=== PATIENT | male | born 1980 | race Caucasian/White ===

== ENCOUNTER 2019-06-22 11:38 | Emergency (ER) | payer OTHER ==
--- OUTSIDE RECORDS SUMMARY | 2019-06-22 12:52 | XMS REPORT | Summary of Care ---
:1980 Author Organization [facility] Address [address] [facility] [place] [address] Care Team Providers Name Role Phone None, [place] Primary Care Provider Unavailable Reason for Visit Reason Comments Establish Care pt presents to establish care Encounter Details Date Type Department Care Team Description 05/20/2019 Office Visit [facility] Eric Pizano MD Anxiety and depression (Primary Dx); Practice [address] [place] [address] Attention deficit hyperactivity disorder (ADHD), combined type; [address] [place] [address] Bipolar affective disorder, current episode depressed, current episode severity unspecified (HCC); [place] [address] Genital warts; [phone] Lateral epicondylitis of right elbow; (Fax) Gastroesophageal reflux disease, esophagitis presence not specified; Dizzy spells Allergies No Known Allergiesdocumented as of this encounter (statuses as of 05/20/2019) Medications Medication Sig Dispensed Refills Start Date End Date Status OLANZapine (ZYPREXA) 5 Take 1 Tab by 30 Tab 1 05/20/2019 Active MG Oral Tab mouth EVERY BEDTIME. gabapentin (NEURONTIN) Take 1 Cap by 90 Cap 1 05/20/2019 Active 300 MG Oral Cap mouth THREE TIMES DAILY. documented as of this encounter (statuses as of 05/20/2019) Active Problems Problem Noted Date ADHD Anxiety and depression Bipolar affect, depressed Genital warts documented as of this encounter (statuses as of 05/20/2019) Social History Tobacco Use Types Packs/Day Years Used Date Current Every Day Smoker Cigarettes 1 Started: 1994 Smokeless Tobacco: Never Used Alcohol Use Drinks/Week oz/Week Comments Not Currently Sex Assigned at Date Recorded Not on file Job Start Date Occupation Industry Not on file Not on file Not on file Travel History Travel Start Travel End No recent travel history available. documented as of this encounter Last Filed Vital Signs Vital Sign Reading Time Taken Comments Blood Pressure 120/82 05/20/2019 9:12 AM EDT Pulse 92 05/20/2019 9:12 AM EDT Temperature - - Respiratory Rate - - Oxygen Saturation 98% 05/20/2019 9:12 AM EDT Inhaled Oxygen Concentration - - Weight 90.7 kg (200 lb) 05/20/2019 9:12 AM EDT Height 177.8 cm (5' 10") 05/20/2019 9:12 AM EDT Body Mass Index 28.7 05/20/2019 9:12 AM EDT documented in this encounter Progress Notes Eric Pizano MD - 05/20/2019 9:00 AM EDT PATIENT: Sean Dubois : 1980 DATE OF SERVICE: 05/20/2019 CHIEF COMPLAINT: Chief Complaint Patient presents with Establish Care pt presents to establish care Subjective HISTORY OF PRESENT ILLNESS: Sean Dubois is a 38-y.o. male. In for the first time . He has a new complaint of a mole n his scalp, not sure if change, it can get irritated Also thinks genitalwarts are back , had them burned 8 years ago Most issues are mental healthy related , he saw a [facility] before who Rx meds, 1 med he recalled was neurontin for anxiety. In [facility] he had meds changed around and he did not like them. Called his old pharmacy and they has zyprexa 5 and motrin 800 and adderrall xr 30 bid But no neurontin He said 6 600mgin a day Right handed with on and off right elbow pain, lifting weights made it worse, now lifting bothers it. Not do anything for it. Past Medical History: Diagnosis Date ADHD Anxiety and depression Bipolar affect, depressed (HCC) Genital warts Family History Problem Relation Age of Onset No Known Problems Mother No Known Problems Father No current outpatient medications on file. No current facility-administered medications for this visit. No Known Allergies Social History Socioeconomic History Marital status: Single Spouse name: Not on file Number of children: Not on file Years of education: Not on file Highest education level: Not on file Occupational History Not on file Social Needs Financial resource strain: Not on file Food insecurity: Worry: Not on file Inability: Not on file Transportation needs: Medical: Not on file Non-medical: Not on file Tobacco Use Smoking status: Current Every Day Smoker Packs/day: 1.00 Types: Cigarettes Start date: 1994 Smokeless tobacco: Never Used Substance and Sexual Activity Alcohol use: Not Currently Drug use: Not Currently Types: Cocaine, Marijuana Sexual activity: Not on file Lifestyle Physical activity: Days per week: Not on file Minutes per session: Not on file Stress: Not on file Relationships Social connections: Talks on phone: Not on file Gets together: Not on file Attends caodaism service: Not on file Active member of club or organization: Not on file Attends meetings of clubs or organizations: Not on file Relationship status: Not on file Intimate partner violence: Fear of current or ex partner: Not on file Emotionally abused: Not on file Physically abused: Not on file Forced sexual activity: Not on file Other Topics Concern Not on file 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 Wants teeth removed Eyes: Glasses when young Respiratory: Negative for shortness of breath. Cardiovascular: Chest pain: with anxiety. Gastrointestinal: Positive for heartburn (few days a week ). Neurological: Dizziness: with stretching. Headaches: occasional. Psychiatric/Behavioral: Negative for suicidal ideas. Objective PHYSICAL EXAM: VITALS: BP 120/82 (BP Location: Left arm, Patient Position: Sitting) | Pulse 92 | Ht 5' 10" (1.778 m) | Wt 200 lb (90.7 kg) | SpO2 98% | BMI 28.70 kg/m Body mass index is 28.7 kg/m. Physical Exam Exam lot of tattoos * no apparent distress, eyes clear, ears normal, oral- moist, no suspicious lesions. Teeth poor Neck supple, without masses. Heart regular without murmur. Lungs clear. Abdomen soft non-tender no masses. Extremity no clubbing cyanosis or edema. Mild tender right elbow mild pain with pronate supinate Skin occiput benign lesion, penis 1 very small slight umbilicated lesion and 1 very large lesion on the shaft Dress and hygiene ok Good eye contact Thoughts and speech normal Affect Appropriate Mood slight anxious ASSESSMENT / IMPRESSION: ICD-9-CM ICD-10-CM 1. Anxiety and depression mental health his biggest issue. Did not ask a lot about ADHD but thoughthe had it based on self medicating. I wrote for the zyprexa and lower dose neurontin but can see psych going forward 300.00 F41.9 311 F32.9 2. Attention deficit hyperactivity disorder (ADHD), combined type 314.01 F90.2 3. Bipolar affective disorder, current episode depressed, current episode severity unspecified (HCC)296.50 F31.30 4. Genital warts froze both scalp and genital the smaller one 4 x with q tip others with a gun . He can go to derm or try aldarra as other ideas 078.11 A63.0 DESTRUCTION LESION BENIGN UP TO 14 LESIONS 5. Lateral epicondylitis of right elbow discussed injection and PT he will try band and motrin 726.32 M77.11 6. Gastroesophageal reflux disease, esophagitis presence not specified should be on H2 zulema to try 530.81 K21.9 7. Dizzy spells 780.4 R42 And HORNE no formal workup today Plan Procedure explain including risks and benefits. Risk include blistering and not working . Patient consent to the procedure. Using cryogun 10 seconds lesion on scalp and shaft of penis. 4 time with q tip on the small lesion Author: Eric Pizano MD 05/20/2019 09:24 documented in this encounter Plan of Treatment Name Type Priority Associated Diagnoses Order Schedule DESTRUCTION LESION Procedures Routine Genital warts Ordered: 05/20/2019 BENIGN UP TO 14 LESIONS Health Maintenance Due Date Last Done Comments HIV SCREENING 1995 INFLUENZA VACCINE (#1) 2019 DEPRESSION SCREENING 05/20/2020 05/20/2019 HPV IMMUNIZATION SERIES Aged Out No longer eligible based on patient's age to complete this topic MENINGOCOCCAL VACCINE IMM Aged Out No longer eligible based on patient's age to complete this topic PNEUMOCOCCAL 0-64 YRS Aged Out No longer eligible based on patient's age to complete this topic documented as of this encounter Results Not on filedocumented in this encounter Visit Diagnoses Diagnosis Anxiety and depression - Primary Dysthymic disorder Attention deficit hyperactivity disorder (ADHD), combined type Bipolar affective disorder, current episode depressed, current episode severity unspecified (HCC) Genital warts Condyloma acuminatum Lateral epicondylitis of right elbow Lateral epicondylitis of elbow Gastroesophageal reflux disease, esophagitis presence not specified Dizzy spells Dizziness and giddiness documented in this encounter Insurance Payer Benefit Plan / Subscriber ID Effective Dates Phone Address Type Group [place] xxxxxxxx 2019-Present Medicaid [place] documented as of this encounter
--- OUTSIDE RECORDS SUMMARY | 2019-06-22 12:52 | XMS REPORT | Summary of Care ---
:1980 Author Organization [facility] Address [address] [facility] [place] [address] Care Team Providers Name Role Phone None, [place] Primary Care Provider Unavailable Reason for Visit Reason Comments Follow Up pt presents for follow up Encounter Details Date Type Department Care Team Description 06/02/2019 Office Visit [facility] Eric Pizano MD Genital warts (Primary Dx); Practice [address] [place] [address] Attention deficit hyperactivity disorder (ADHD), combined type; [address] [place] [address] [place] [address] [phone] Allergies No Known Allergiesdocumented as of this encounter (statuses as of 06/02/2019) Medications Medication Sig Dispensed Refills Start Date End Date Status OLANZapine (ZYPREXA) 5 Take 1 Tab by 30 Tab 1 05/20/2019 Active MG Oral Tab mouth EVERY BEDTIME. gabapentin (NEURONTIN) Take 1 Cap by 90 Cap 1 05/20/2019 Active 300 MG Oral Cap mouth THREE TIMES DAILY. famotidine (PEPCID) 20 Take 1 Tab by 60 Tab 5 06/02/2019 Active MG Oral Tab mouth TWICE DAILY. documented as of this encounter (statuses as of 06/02/2019) Active Problems Problem Noted Date ADHD Anxiety and depression Bipolar affect, depressed Genital warts documented as of this encounter (statuses as of 06/02/2019) Social History Tobacco Use Types Packs/Day Years [...] Sign Reading Time Taken Comments Blood Pressure 130/82 06/02/2019 2:27 PM EDT Pulse 94 06/02/2019 2:27 PM EDT Temperature - - Respiratory Rate - - Oxygen Saturation 98% 06/02/2019 2:27 PM EDT Inhaled Oxygen Concentration - - Weight 90.4 kg (199 lb 6.4 oz) 06/02/2019 2:27 PM EDT Height 177.8 cm (5' 10") 06/02/2019 2:27 PM EDT Body Mass Index 28.61 06/02/2019 2:27 PM EDT documented in this encounter Progress Notes Eric Pizano MD - 06/02/2019 2:20 PM EDT PATIENT: Sean Dubois : 1980 DATE OF SERVICE: 06/02/2019 CHIEF COMPLAINT: Chief Complaint Patient presents with Follow Up pt presents for follow up Subjective HISTORY OF PRESENT ILLNESS: Sean Dubois is a 38-y.o. male. In primarily to treat his warts. He thinks the 3 lesions have shrunk. His sister thinks the one onscalp smaller He does not want to go to another doctor. At last visit I told him should go back to mental health to get meds I was going to give temporarily. He cant get into his old doctors practice as full Mat . He feels mood ok on neurontin and zyprexa I did not want to give the stimulant His elbow ok but not using it. HORNE not bother lately Dizzy only when stretches Past Medical History: Diagnosis Date ADHD Anxiety and depression Bipolar affect, depressed (HCC) Genital warts Family History Problem Relation Age of Onset No Known Problems Mother No Known Problems Father Current Outpatient Medications Medication Sig famotidine (PEPCID) 20 MG Oral Tab Take 1 Tab by mouth TWICE DAILY. gabapentin (NEURONTIN) 300 MG Oral Cap Take 1 Cap by mouth THREE TIMES DAILY. OLANZapine (ZYPREXA) 5 MG Oral Tab Take 1 Tab by mouth EVERY BEDTIME. No current facility-administered medications for this visit. 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 Physical Exam Vitals signs reviewed. Constitutional: Appearance: He is not ill-appearing. Cardiovascular: Rate and Rhythm: Normal rate and regular rhythm. Pulmonary: Effort: Pulmonary effort is normal. Breath sounds: Normal breath sounds. Skin: Comments: 8mm flatter flesh pink on vertex Still a large lesion at base of penis . Shaft small and sligh excoriated Psychiatric: Comments: Dress and hygiene good Good eye contact Thoughts and speech normal Affect Appropriate Mood stable ASSESSMENT / IMPRESSION: ICD-9-CM ICD-10-CM 1. Genital warts 078.11 A63.0 2. Attention deficit hyperactivity disorder (ADHD), combined type no stimulants [facility]01 F90.2 3. Anxiety and depression stable but up hill up with his criminal record 300.00 F41.9 311 F32.9 Plan Procedure Procedure explain including risks and benefits. Risk include pain infection and blistering Patient consent to the procedure. 10 sec on vertex, 10 sec x 2 on penis base. q tip x 4 on penis tip Author: Eric Pizano MD 06/02/2019 21:43 documented in this encounter Plan of Treatment Date Type Specialty Care Team Description 06/18/2019 Office Visit Family Practice Eric Pizano MD [address] [address] [phone] Health Maintenance Due Date Last Done Comments PNEUMOCOCCAL 0-64 YRS (1 of 1 - 1986 PPSV23) HIV SCREENING 1995 DEPRESSION SCREENING 05/20/2020 05/20/2019 INFLUENZA VACCINE (#1) 2020 Postponed from 04/20/2019 (Patient refused) HPV IMMUNIZATION SERIES Aged Out No longer eligible based on patient's age to complete this topic MENINGOCOCCAL VACCINE IMM Aged Out No longer eligible based on patient's age to complete this topic documented as of this encounter Goals Goal Patient Goal Associated Recent Patient-Stated? Author Type Problems Progress Depression Depression No enrique Pizano (PHQ-9) MD Eric total score < 5 Note: This is an individualized treatment (depression) goal for Sean Sherly: Displayed above is your goal for a depression screening (PHQ-9) score that would indicate good control of your depression. Keep a regular sleep schedule Lifestyle No Eric Pizano MD Note: This is an individualized lifestyle goal for Sean Dubois: Please maintain a regular sleep schedule. This may help with some symptoms of depression. Take all prescribed medications as directed Self-management No Eric Pizano MD Note: This is an individualized self-management goal for Sean Dubois: Please take all prescribed medications as directed. 1. Do not skip doses. If you cannot afford your medications, talk with your doctor. 2. Use a pill reminder system such as a pill box if needed. Your pharmacist can help you with this. 3. Contact your Pharmacy 5 days before your medication runs out. If you cannot take your medications for any reasons, talk with your doctor. 4. Please bring all of your medication bottles and inhalers (or a list of all your medications/inhalers) with you to every visit. Potential barriers to meeting all of your care plan goals will continue to be addressed on an ongoing basis. documented as of this encounter Results Not on filedocumented in this encounter Visit Diagnoses Diagnosis Genital warts - Primary Condyloma acuminatum Attention deficit hyperactivity disorder (ADHD), combined type Anxiety and depression Dysthymic disorder documented in this encounter Insurance Payer Benefit Plan / Subscriber ID Effective Dates Phone Address Type Group [facility] xxxxxxxxxxx 2019-Present [place] 2019-Present [place] documented as of this encounter
--- OUTSIDE RECORDS SUMMARY | 2019-06-22 12:52 | XMS REPORT | Summary of Care ---
:1980 Author Organization [facility] Address [address] [facility] [place] [address] Care Team Providers Name Role Phone None, [place] Primary Care Provider Unavailable Reason for Visit Reason Comments Follow Up pt presents for follow up Encounter Details Date Type Department Care Team Description 06/18/2019 Office Visit [facility] Eric Pizano MD Genital warts (Primary Practice [address] Dx) [address] [place] [address] [place] [address] [phone] Allergies No Known Allergiesdocumented as of this encounter (statuses as of 06/18/2019) Medications Medication Sig Dispensed Refills Start Date [...] as of this encounter (statuses as of 06/18/2019) Active Problems Problem Noted Date ADHD Anxiety and depression Bipolar affect, depressed Genital warts documented as of this encounter (statuses as of 06/18/2019) Social History Tobacco Use Types Packs/Day Years Used Date Never Assessed Sex Assigned at Date Recorded Not on file Job Start Date Occupation Industry Not on file Not on file Not on file Travel History Travel Start Travel End No recent travel history available. documented as of this encounter Last Filed Vital Signs Vital Sign Reading Time Taken Comments Blood Pressure 162/88 06/18/2019 4:11 PM EDT Pulse 93 06/18/2019 4:11 PM EDT Temperature - - Respiratory Rate - - Oxygen Saturation 96% 06/18/2019 4:11 PM EDT Inhaled Oxygen Concentration - - Weight 92.7 kg (204 lb 6.4 oz) 06/18/2019 4:11 PM EDT Height 177.8 cm (5' 10") 06/18/2019 4:11 PM EDT Body Mass Index 29.33 06/18/2019 4:11 PM EDT documented in this encounter Progress Notes Eric Pizano MD - 06/18/2019 4:00 PM EDTPATIENT: Sean Dubois : 1980 DATE OF SERVICE: 06/18/2019 SUBJECTIVE: been giving liquid nitrogen treatment to the large genital wart. He thinks it is getting better slowly . Sloughs off little at a time OBJECTIVE: BP 162/88 (BP Location: Right arm, Patient Position: Sitting) Pulse 93 Ht 5' 10" (1.778 m) Wt 204lb 6.4 oz (92.7 kg) SpO2 96% BMI 29.33 kg/m2 The wart is less inflamed and maybe little smaller on the penile base ASSESSMENT: Genital wart PLAN: Using liquid nitrogen gun his for 20 seconds gave a prolonged freeze follow up in 2 weeks Author: Eric Pizano MD 06/18/2019 20:47 documented in this encounter Plan of Treatment Date Type Specialty Care Team Description 07/03/2019 Office Visit Family Practice Eric Pizano MD [address] [place] [address] [phone] Name Type Priority Associated Diagnoses Order Schedule DESTRUCTION LESION Procedures Routine Genital warts Ordered: 06/18/2019 BENIGN UP TO 14 LESIONS Health Maintenance Due Date Last Done Comments PNEUMOCOCCAL 0-64 YRS (1 of - 1986 PPSV23) HIV SCREENING 1995 DEPRESSION [...] an individualized treatment (depression) goal for Sean Dubois: Displayed above is your goal for a [...] Diagnosis Genital warts - Primary Condyloma acuminatum documented in this encounter Insurance Payer Benefit Plan / Subscriber ID Effective Dates Phone Address Type Group [facility] xxxxxxxxxxx 2019-Present [place] 2019-Present [place] documented as of this encounter
[2019-06-22 12:57] VITALS: BP 173/108
--- NOTE | 2019-06-22 13:06 | UC ---
Back Pain HPI - HPI Summary HPI Summary: Patient is a 38yo male presenting with back pain since 06/19/19 after he fell 6 ft off a ladder and hit his mid back on a 6ft retainer wall while cleaning gutters. Patient states pain is sharp and throbbing and has not improved. Notes radiating pain into R ribs. Notes increased pain with coughing. Notes pain worse with going from standing to sitting position and vice versa. Also notes pain in worse in morning after becoming stiff all night it the pain causes nausea when standing up out of bed. Notes pain better when sitting or lying still. Increased pain also with ambulation. Denies numbness and tingling. Denies decreased strength. Denies incontinence or changes in urination or BMs. Denies abdominal pain and vomiting. Denies neck or lower back pain. Denies SOB and difficulty breathing. Denies decreased appetite or fluid intake. Patient notes taking ibuprofen but with some relief but is concerned that he is " masking pain of something that could be bad." - History of Current Complaint Chief Complaint: UCBackPain Stated Complaint: BACK INJURY Hx Obtained From: Patient Onset/Duration: Sudden Onset, Lasting Days Timing: Constant Severity Currently: Mild Pain Intensity: 3 Pain Scale Used: 0-10 Numeric - Allergies/Home Medications Allergies/Adverse Reactions: Allergies Allergy/AdvReac Type Severity Reaction Status Date / Time No Known Allergies Allergy Verified 06/22/19 12:57 Home Medications: Home Medications Acetaminophen [8 Hour Arthritis Pain Rel] 2 cap PO PRN 06/22/19 [History] Gabapentin [Neurontin] 06/22/19 [History] Heartburn Med* 06/22/19 [History] Ibuprofen TAB* [Advil TAB*] 1,000 mg PO PRN 06/22/19 [History] PMH/Surg Hx/FS Hx/Imm Hx Previously Healthy: Yes Psychological History: Anxiety - Surgical History Surgical History: None - Family History Known Family History: Positive: Unknown - Social History Alcohol Use: None Substance Use Type: None Smoking Status (MU): Current Every Day Smoker Type: Cigarettes Amount Used/How Often: 1 PPD Review of Systems All Other Systems Reviewed And Are Negative: Yes Constitutional: Positive: Negative. Negative: Fever, Chills Skin: Positive: Bruising - mid back Respiratory: Negative: Shortness Of Breath, Cough Cardiovascular: Positive: Negative Gastrointestinal: Positive: Nausea. Negative: Abdominal Pain, Vomiting, Diarrhea Genitourinary: Positive: Negative Neurovascular: Positive: Negative Musculoskeletal: Positive: Arthralgia, Decreased ROM, Edema, Myalgia Neurological: Negative: Weakness, Paresthesia, Numbness Physical Exam Triage Information Reviewed: Yes Appearance: Well-Nourished, Pain Distress Vital Signs: Initial Vital Signs Temp 98.5 F 06/22/19 12:51 Pulse 105 06/22/19 12:51 Resp 16 06/22/19 12:51 BP 173/108 06/22/19 12:51 Pulse Ox 98 06/22/19 12:51 Lab Results 06/22/19 Range/Units 14:02 POC Urine Color Yellow POC Urine Clarity Clear POC Urine pH 5.5 (5-9) POC Ur Specif Suches 1.020 (1.010-1.030) POC Urine Protein 2+ A (Negative) POC Ur Glucose (UA) Negative (Negative) POC Urine Ketones Trace A (Negative) POC Urine Blood Negative (Negative) POC Urine Nitrite Negative (Negative) POC Urine Bilirubin 1+ A (Negative) POC Urine Urobilinogen 0.2 (Negative) POC U Leukocyte Esteras Trace A (Negative) Vital Signs Reviewed: Yes Eyes: Positive: Conjunctiva Clear ENT: Positive: Hearing grossly normal Neck: Positive: Supple Respiratory Exam: Normal Respiratory: Positive: Lungs clear, Normal breath sounds, No respiratory distress. Negative: Crackles, Rhonchi, Stridor, Wheezing Cardiovascular Exam: Other - regular rhythm Cardiovascular: Positive: Pulses Normal, Brisk Capillary Refill, Tachycardia. Negative: Distal Pulses Weak, Distal Pulses Absent Abdomen Description: Positive: Soft. Negative: Nontender - RLQ tenderness to palpation, CVA Tenderness (R), CVA Tenderness (L), Distended, Guarding, Peritoneal Signs Bowel Sounds: Positive: Present Musculoskeletal: Positive: Strength Intact, ROM Intact - C spine ROM intact, No Edema, ROM Limited @ - flexion and extension of thoracic spine d/t pain., Other : - midline tenderness to palpation of thoracic spine. tenderness to palpation of R ribs. no c spine tenderness Neurological Exam: Other - cranial nerves II-XII intact Neurological: Positive: Alert Psychological: Positive: Age Appropriate Behavior Skin: Positive: Other - faint ecchymosis noted over middle thoracic spine. small healing abrasion over same area Diagnostics - Radiology thoracic spine Radiology Interpretation Completed By: Radiologist Summary of Radiographic Findings: IMPRESSION: NO THORACIC SPINE FRACTURE BY RADIOGRAPH. R ribs Radiology Interpretation Completed By: Radiologist Summary of Radiographic Findings: IMPRESSION: NO DISPLACED RIB FRACTURE BY RADIOGRAPH. Back Pain Course/Dx - Course Course Of Treatment: Patient xrays negative for fracture. Considering severe pain exhibited by patient, I expressed concern to the patient for possible injury not seen on xray. I explained that I recommend immediately going to ED for further imaging and lab work. I explained complications and consequences of traumatic back injuries and not receiving proper evaluation. Patient continued to decline going to ED. He voiced understanding of the situation including all risks. Stated he was going to go home with nephew driving. Stated he would go to ED if anything worsens. Patient signed out AMA and was stable upon departure. I also discussed this patient in entirety with Dr. Martines who also agreed with the plan. - Differential Dx/Diagnosis Provider Diagnosis: Midline thoracic back pain Discharge ED - Sign-Out/Discharge Documenting (check all that apply): Patient Departure All imaging exams completed and their final reports reviewed: Yes - Discharge Plan Condition: Stable Disposition: HOME-RECOMMEND TO ED Patient Education Materials: Back Pain (ED) Forms: *Work Release Referrals: No Primary Care Phys,NOPCP [Primary Care Provider] - Additional Instructions: The provider that evaluated you today thinks that you need additional testing that can be completed the emergency department. It is recommended that you go directly to emergency department for further evaluation. This evaluation includes blood work or imaging. This testing will be directed and decided by the provider that evaluates you at the emergency department. If pain becomes worse, you feel lightheaded, you have uncontrolled vomiting, inability to walk, or you have any other concerns, go to the nearest ED as soon as possible or contact 911. - Billing Disposition and Condition Condition: STABLE Disposition: Home-Recommend to ED - Attestation Statements Provider Attestation: This patient was not seen by me. I was available for consult. PEDRO PABLO
== END 2019-06-22 14:37 | disposition home health service (06) ==
LOC: UCEAST 11:38
DX: M54.6 Pain in thoracic spine (principal); F41.9 Anxiety disorder, unspecified; F17.210 Nicotine dependence, cigarettes, uncomplicated; M79.10 Myalgia, unspecified site; Z79.899 Other long term (current) drug therapy
CPT/HCPCS: 72070; 81003; 87086; 99202; G0463